=== PATIENT | male | born 1975 | race Caucasian/White ===

== ENCOUNTER 2021-05-21 07:30 | Emergency (ER) | payer OTHER ==
[2021-05-21 07:41] VITALS: TEMP 97.7; BMI 35.5
[2021-05-21] MEDS ORDERED: LIDOCAINE HCL 1%, 10 MG/ML (50 mL VIAL) INF ONE (08:00)
[2021-05-21] MEDS ORDERED: LIDOCAINE HCL 1%, 10 MG/ML (20ML VIAL) ONE (08:09)
[2021-05-21] MEDS ORDERED: PHENYLEPHRINE HCL 10 MG/1 ML SINGLE DOSE VIAL NR ONE (09:28)
[2021-05-21] MEDS ORDERED: PHENYLEPHRINE HCL 10 MG/1 ML SINGLE DOSE VIAL ONE (10:00)
[2021-05-21 10:25] LABS: BASO % 0.5 % (0-2.0); EOS % 0.2 % (0-4.5); HEMATOCRIT 49.1 % (35.4-49); LYMPH % 8.9 % (8-40); MCH 33.5 pg (25.7-33.7); MCHC 34.7 g/dl (32.0-35.9); MEAN CELL VOLUME 96.4 fl (80-96); MEAN PLT VOLUME 8.4 fl (7.5-11.1); MONO % 6.7 % (3.8-10.2); NEUT % 83.7 % (42.8-82.8); PLATELET COUNT 164 10^3/uL (134-434); RBC 5.09 M/mm3 (4.00-5.60); RDW 14.9 % (11.9-15.9); WHITE BLOOD COUNT 5.1 K/mm3 (4.0-10.0)
[2021-05-21 10:32] LABS: INR 1.02 (0.83-1.09); PROTHROMBIN TIME (PATIENT) 12.3 SEC (9.7-13.0)
[2021-05-21 10:35] LABS: ACTIVATED PTT 30.7 SECONDS (25.2-36.5)
[2021-05-21 10:46] LABS: ALBUMIN 4.1 g/dl (3.4-5.0); CALCIUM 9.4 mg/dL (8.5-10.1)
[2021-05-21 10:47] LABS: BLOOD UREA NITROGEN 22.5 mg/dL (7-18)
[2021-05-21 10:50] LABS: CREATININE 1.2 mg/dL (0.55-1.3)
[2021-05-21 10:51] LABS: BILIRUBIN,TOTAL 0.5 mg/dL (0.2-1); TOT PROT 7.1 g/dl (6.4-8.2)
[2021-05-21 13:17] VITALS: BP 128/90; PULSE 93
== END 2021-05-21 13:00 | disposition home or self-care (01) ==
LOC: JER 07:30
DX: T50.905A Adverse effect of unspecified drugs, medicaments and biological substances, initial encounter (principal); N48.33 Priapism, drug-induced
CPT/HCPCS: 36415; 80053; 85025; 85610; 85730; 86850; 86900; 86901; 99283-25

== ENCOUNTER 2021-08-15 17:30 | Emergency (ER) | payer OTHER ==
[2021-08-15 18:09] VITALS: BMI 35.5
[2021-08-15] MEDS ORDERED: BAMLANIVIMAB 700 MG, ETESEVIMAB 1,400 MG in SODIUM CHLORIDE 100 ML IVPB ONE (18:54)
[2021-08-15 20:07] LABS: BASO % 0.4 % (0-2.0); HEMOGLOBIN 17.9 GM/dL (11.7-16.9); LYMPH % 14.2 % (8-40); MCH 32.6 pg (25.7-33.7); MCHC 33.8 g/dl (32.0-35.9); MEAN CELL VOLUME 96.3 fl (80-96); MEAN PLT VOLUME 8.1 fl (7.5-11.1); MONO % 9.8 % (3.8-10.2); NEUT % 75.6 % (42.8-82.8); PLATELET COUNT 90 10^3/uL (134-434); RBC 5.51 M/mm3 (4.00-5.60); RDW 15.1 % (11.9-15.9); WHITE BLOOD COUNT 2.4 K/mm3 (4.0-10.0)
[2021-08-15 20:27] LABS: CHLORIDE 101 mmol/L (98-107); SODIUM 138 mmol/L (136-145)
[2021-08-15 20:30] LABS: CALCIUM 8.8 mg/dL (8.5-10.1)
[2021-08-15 20:31] LABS: ALBUMIN 3.9 g/dl (3.4-5.0); ANION GAP 6 MMOL/L (8-16); BLOOD UREA NITROGEN 14.7 mg/dL (7-18); CO2 31 mmol/L (21-32); GLUCOSE,RANDOM 107 mg/dL (74-106)
[2021-08-15 20:34] LABS: CREATININE 1.2 mg/dL (0.55-1.3); SGOT/AST 30 U/L (15-37); SGPT/ALT 51 U/L (13-61)
[2021-08-15 20:36] LABS: BILIRUBIN,TOTAL 0.5 mg/dL (0.2-1); TOT PROT 7.3 g/dl (6.4-8.2)
[2021-08-15 20:37] LABS: ALK PHOS 78 U/L (45-117)
[2021-08-15] MEDS ORDERED: SODIUM CHLORIDE 0.9% 500 ML INFUS.BAG IV ONE (20:59)
[2021-08-15 22:49] VITALS: BP 150/89; PULSE 102; TEMP 99.8
== END 2021-08-15 22:48 | disposition home or self-care (01) ==
LOC: JER 17:30 → JCOVINFU 17:30
PROC: 3E03329 Introduction of Other Anti-infective into Peripheral Vein, Percutaneous Approach (ICD-10-PCS; principal; 2021-08-15)
PROC: 3E0337Z Introduction of Electrolytic and Water Balance Substance into Peripheral Vein, Percutaneous Approach (ICD-10-PCS; 2021-08-15)
DX: U07.1 COVID-19 (principal)
CPT/HCPCS: 36415; 71046-TC-FY; 80053; 84484; 85025; 99284-25; M0245; Q0239; Q0245